=== PATIENT | male | born 1985 | race African-American/Black ===

== ENCOUNTER 2017-12-15 01:07 | Emergency (ER) | payer BC ==
[~2017-12-15] VITALS: Ht 188 cm; Wt 95.3 kg
[2017-12-15 01:13] VITALS: BP 126/85
--- NOTE | 2017-12-15 01:15 | NUR ---
PT TO ER BB RA FOR ETOH. PT WAS LAYING OUTSIDE OF BAR. NO IMMEDIATE SIGNS OF DISTRESS NOTED. PT VITAL SIGNS STABLE. NO SIGNS OF DISTRESS NOTED. PT TO ER BED, CHANGED INTO GOWN AND CONNECTED TO MONITOR,. PT WAITING TO BE SEEN BY .
--- NOTE | 2017-12-15 02:05 | NUR ---
PT AMBULATORY WITH STEADY GAIT. VSS
--- NOTE | 2017-12-15 03:15 | NUR ---
ADA STALLINGS FROM ER. DR BILL NOTIFIED.
== END 2017-12-15 03:15 | disposition left against medical advice (07) ==
LOC: ER 01:09
DX: F10.129 Alcohol abuse with intoxication, unspecified (principal)
CPT/HCPCS: A4606; Z7610